=== PATIENT | male | born 1995 | race Caucasian/White ===

== ENCOUNTER 2024-06-16 22:55 | Emergency (ER) | payer OTHER ==
[~2024-06-16] VITALS: Ht 177.8 cm; Wt 80.0 kg
[2024-06-16] MEDS ORDERED: SUBOXONE 8 MG-1 EAC1 SL (23:08)
[2024-06-16] MEDS ORDERED: PROZAC40 MG PO (23:09)
[2024-06-16] MEDS ORDERED: DIPHTH,PERTUSS(ACELL),TET VAC 0.5 ML SYRINGE IM ONE (23:15)
[2024-06-16] MEDS ORDERED: MORPHINE SULFATE 10 MG/ML VIAL IM ONE (23:15)
[2024-06-16] MEDS ORDERED: KETOROLAC TROMETHAMINE 60 MG/2 ML VIAL IM ONE (23:45)
[2024-06-17 01:00] VITALS: BP 135/62
== END 2024-06-17 01:15 | disposition home or self-care (01) ==
LOC: ED 22:55
DX: S01.511A Laceration without foreign body of lip, initial encounter (principal); S01.81XA Laceration without foreign body of other part of head, initial encounter; S01.112A Laceration without foreign body of left eyelid and periocular area, initial encounter; S00.12XA Contusion of left eyelid and periocular area, initial encounter; W10.8XXA Fall (on) (from) other stairs and steps, initial encounter; Z88.0 Allergy status to penicillin; Z79.899 Other long term (current) drug therapy; Z23 Encounter for immunization
CPT/HCPCS: 12014; 70450; 70486; 72125; 90471; 90715; 99283-25; J1885; J2270